=== PATIENT | female | born 1950 | race Caucasian/White ===

== ENCOUNTER → 2017-02-03 | Emergency (ER) | payer OTHER, MEDICARE ==
[~2017-02-03] VITALS: Ht 157.5 cm; Wt 52.2 kg
[~2017-02-03] MED LIST: FLONASE ALLERG9.9 ML NS
--- OUTSIDE RECORDS SUMMARY | 2017-02-03 10:04 | External Medical Summary Rpt | CCD ---
Author Author , VON ZAZUETA Address Unknown Phone [email or web address] Purpose Continuity of Care Document - 10-31-2016 through 2016 Problems Code Diagnosis DOS Provider Status R10.2 PELVIC AND 11-12-2016 PERINEAL PAIN Results Labs Lab Lab Date Result Refere Interp Status Commen Order Detail nces retati t Range on TSH SerPl DL<=0.005 mIU/L-aCnc (10-31-2016 14:57) TSH 1.46 0.4-4.2 complet SerPl 017 uIU/mL ed DL<=0.0 14:57 05 mIU/L-a Cnc
--- OUTSIDE RECORDS SUMMARY | 2017-02-03 10:04 | External Medical Summary Rpt | CCD ---
Demographics Preferred Language Amharic Marital Status Unknown Orthodoxy Affiliation Unknown Race Unknown Ethnic Group Unknown Author Author , CARLITA ZAZUETA Address Unknown Phone Immunization No patient found.
--- OUTSIDE RECORDS SUMMARY | 2017-02-03 10:04 | External Medical Summary Rpt | CCD ---
Author Author [employer] Organization [employer] Address Unknown Phone Unavailable Purpose Continuity of Care Document - through 2016
--- OUTSIDE RECORDS SUMMARY | 2017-02-03 10:04 | External Medical Summary Rpt ---
Author Author CARLITA Everett, [employer] Organization [employer] Address Unknown Phone Unavailable
--- OUTSIDE RECORDS SUMMARY | 2017-02-03 10:04 | External Medical Summary Rpt | CCD ---
Demographics Preferred Language Georgian Marital Status Unknown Congregation Affiliation Unknown Race Unknown Ethnic Group Unknown Author Author , CARLITA ZAZUETA Address Unknown Phone Immunization No patient found.
--- OUTSIDE RECORDS SUMMARY | 2017-02-03 10:04 | External Medical Summary Rpt | CCD ---
Author Author , VON ZAZUETA Address Unknown Phone [facility] Purpose Continuity of Care Document - 10-31-2016 [...]
[2017-02-03 10:44] VITALS: BP 137/89
--- NOTE | 2017-02-03 10:44 | Urgent Treatment Center Report ---
History of Present Issue Date/Time Seen by Provider 02/03/17 1038 Visit Reason Pt arrived:Walked Presenting Problem:PT C/O RUNNY NOSE, SINUS HEADACHE, HOARSE VOICE, SHOULDER PAIN. Location if Accident: Onset of symptoms date/time:/ or onset unknown for:MEDICAL HX UNKNOWN Have you (or family members/close friends) recently traveled outside the [place]? N If Yes, where/when: Have you had exposure to infectious disease within the past month? TB? Other? Specify: Source patient, RN notes reviewed, family Exam Limitations no limitations Comment 66-year-old female presents for cough, clear nasal drainage, hoarseness, and sinus headache since Saturday and runny nose ALLERGIES Coded Allergies: Sulfa (Sulfonamide Antibiotics) (02/03/17) Uncoded Allergies: NOVICAINE (02/03/17) History Medical History General CAD? No Angina: No KS: No Hypertension? No Hyperlipidemia? No CHF? No DVT? No PE? No COPD? No Asthma? No Anemia? No GERD? No Gastric ulcers? No GI Bleed? No Hernia? No Thyroid Problems? No Hypothyroidism? No CVA? No Seizures? No Diabetes? No Renal Insuffiency? No UTI? No Stones? No BPH? No GB Disease: No Nephritic Syndrome? No Asplenia? No Hepatitis? No Sickle Cell Disease? No Arthritis? No Migraines? No Cataracts? No Glaucoma? No MRSA? No HIV? No TB? No Anxiety? Yes Depression? Yes Cancer? No More? No Immunization HX DT/Tetanus Unknown Surgical Hx Previous Surgery?N Social History Smoking Hx Smoker: Never Smoker Tobacco: No Alcohol Alcohol: No Review of Systems All Other Systems Reviewed and Negative ENT see HPI, nose discharge, nose congestion. Respiratory see HPI, cough Physical Exam Vital Signs Vital Signs Date Time Temp Pulse Resp B/P Pulse O2 O2 Flow FiO2 Ox Delivery Rate 02/03 1030 98.6 72 18 137/89 98 - WBC >12,000 or <4,000 or 10% bands? 2 or more SIRS Criteria Met? B/P:137/89 MAP:105 Creatinine >2.0? UA output<0.5ml/kg/hr for 2 hrs? Platelet count >100,000? Lactate >2.0mmol/1? INR >1.2 or PTT > than 60 sec? Evidence of Organ Dysfunction? Provider documented clinical suspician of infection? Sepsis Criteria Count: 0 Sepsis Risk: General Appearance normal appearance, no apparent distress Eye Exam - bilateral eye normal exam, bilateral eye PERRL, bilateral eye EOMI Ear, Nose, Throat hearing grossly normal, normal ENT inspection, normal pharynx Neck non-tender, supple, full range of motion Respiratory Status Yes: trachea midline, chest symmetrical, non tender chest. No: respiratory distress. Lung Sounds bilateral: normal breath sounds, lungs clear. Cardiovascular normal exam, regular rate/rhythm, no peripheral edema Neurologic alert, normal exam, oriented x 3 Medical Decision Making LABS/Meds/Orders Pt receiving controlled substance in ED? No Departure Departure Time of Disposition 1040 Disposition DC Home or Self Care(routine) Clinical Impression Primary Impression: Allergic rhinitis Qualifiers: Chronicity: acute Allergic rhinitis trigger: other Allergic rhinitis seasonality: seasonal Qualified Code: J30.2 - Other seasonal allergic rhinitis Condition STABLE Referrals JEREMIAH STRICKLAND (Family) Patient Instructions Allergic Rhinitis Additional Instructions Claritin [id number] Flonase as ordered Follow-up with primary care if symptoms worsen or do not improved retrun or be seen in ed Discharge Counseling Counseled pt/family regarding diagnosis, test results, medications/RX, home care, follow up needs Prescriptions Current Visit Scripts Fluticasone Propionate (Flonase Allergy Relief) 9.9 ML NS DAILY 14 Days at 1047
== END ==
LOC: UTC 09:58
DX: J30.2 Other seasonal allergic rhinitis (principal); Z88.2 Allergy status to sulfonamides